=== PATIENT | female | born 1980 ===

== ENCOUNTER 2017-10-23 04:02 | Outpatient (RCR) | payer MEDICAID ==
[2015-04-04 08:16] VITALS: BMI 43.7
[~2017-10-23 04:02] MED LIST: AMO500 PO; AMOX500T10 PO; AMPH30TA9 PO; ARIP5TAB28 PO; CEP500 PO; CIPR-326 PO; CIPR-344 PO; DOCO100C2 PO; DULO60CA51 PO; ENA10 PO; ETON1VAG7 VG; EXEN2VIA SQ; FLUC200T52 PO; GLY25 PO; HUM100VI2 SUBQ; HYDR-317 PO; IBUP800T37 PO; INSU100V24 SQ; INSU100V24 SUBQ; INSU100V26 SQ; KET10 PO; MELO-205 PO; MET500 PO; METF-420 PO; NAPR500T31 PO; NORG1TAB2 PO; NPH,100V12 SQ; NPH,100V2 SUBQ; OMEP-125 PO; PER PO; PNV1TABL24; SUCR1TAB85 PO
--- NOTE | 2017-10-28 15:46 | RADIOLOGY IMAGING REPORT ---
FACILITY: [facility] PATIENT NAME: Sully Knox : 1980 MR: [id number] V: [id number] EXAM DATE: ORDERING PHYSICIAN: CHERI SOSA TECHNOLOGIST: Location: [facility] Patient: Sully Knox : 1980 Visit/Account:[id number] Date of Sevice: 10/23/2017 Exam type: GASTRIC EMPTYING History: Abdomen pain, nausea and vomiting Comparison: None. Findings: The patient received 2 mCi of technetium 99m sulfur colloid in 8 ounces of juice. Multiple sequentia l images were obtained over the abdomen for 88 minutes. Time/activity curve was generated. At 88 mi nutes 60% of gastric contents had emptied. The T1 half gastric emptying time was 47 minutes IMPRESSION: 1. T1 half gastric emptying time of a liquid phase radioactive meal of 47 minutes Report Dictated By: Nolvia Potter MD at 10/28/2017 3:23 PM Report E-Signed By: Nolvia Potter MD at 10/28/2017 3:41 PM WSN:[id number]
== END 2017-10-23 18:00 | disposition home or self-care (01) ==
LOC: NUC 04:02 → EDSTATUS 15:22 → NUC 18:00
PROVIDERS: ATTEND Internal Medicine Gastroenterology
DX: R11.2 Nausea with vomiting, unspecified (principal)
CPT/HCPCS: 78264; A9541

== ENCOUNTER → 2018-09-01 | Outpatient (CLI) | payer MEDICAID ==
[2015-04-04 08:16] VITALS: BMI 43.7
[~2018-09-01] MED LIST changes: +AMIT-104 PO; +AMOX-559 PO; +CYCL10TA29 PO; +LOSA25TA57 PO; -METF-420 PO; +METF-452 PO; +MULT1CAP59 PO; +POLY119P24 PO; +POLY17PO25 PO
--- NOTE | 2018-09-01 10:40 | EKG ---
FACILITY: [facility] PATIENT NAME: ROBBIE VALLE : [id number] MR: [id number] V: [id number] EXAM DATE: ORDERING PHYSICIAN: TESSY BENNETT TECHNOLOGIST: QUYEN Test Reason : PRE-OP CLEARENCE Blood Pressure : / mmHG Vent. Rate : 071 BPM Atrial Rate : 071 BPM P-R Int : 156 ms QRS Dur : 074 ms QT Int : 396 ms P-R-T Axes : 017 027 029 degrees QTc Int : 430 ms Normal sinus rhythm with sinus arrhythmia Normal ECG When compared with ECG of 29-OCT-2016 12:57, T wave amplitude has increased in Anterior leads Confirmed by VAL BUCIO ([id number]) on 09/02/2018 1:48:02 PM Referred By: ZAKI Confirmed By:VAL BUCIO
== END ==
LOC: LAB 09:45
PROVIDERS: ATTEND Surgery
DX: E11.9 Type 2 diabetes mellitus without complications (principal); I10 Essential (primary) hypertension
CPT/HCPCS: 36415; 82310; 82374; 82435; 82565; 82947; 83036; 84132; 84295; 84520

== ENCOUNTER 2018-10-29 01:50 | Day surgery (SDC) | payer MEDICAID ==
[2015-04-04 08:16] VITALS: Ht 157.5 cm; Wt 87.5 kg
[~2018-10-29] VITALS: Ht 157.5 cm; Wt 87.5 kg
[~2018-10-29 01:50] MED LIST changes: +AMIT-106 PO; +LOSA50TA80 PO
[2018-10-29 06:40] VITALS: BP 145/89
[2018-10-29] MEDS ORDERED: NORMOSOL R SOLN(*) 1000 ML BAG 1,000 ML IV PRN (07:00)
[2018-10-29] MEDS ORDERED: LIDOCAINE/SOD BICARB 8.4% SYR ID ONE (07:00)
[2018-10-29] MEDS ORDERED: PROPOFOL EMUL(*) 10MG/ML 20 ML 40 ML ONE (07:37)
[2018-10-29] MEDS ORDERED: LIDOCAINE MPF 1% 5 ML VIAL ONE (07:37)
[2018-10-29 08:17] VITALS: BP 102/44
--- NOTE | 2018-10-29 08:22 | Short(Outpt) Discharge Summary ---
Discharge Summary Reason for Hosp/Final Diag: (1) Colitis Status: Acute Hospital Course & Plan: 38 yo f presented for colonoscopy. she tolerated the procedure well and there were no complications. she will be discharged home when criteria met. Departure Discharge to: Home Discharge Instructions Home Meds Active Scripts Polyethylene Glycol 3350 (MIRALAX) 119 Gm Powder, 119 GM PO AB for 1 Day, #4 BOTTLE Take as instructed per colonoscopy instructions Prov:TESSY BENNETT 09/01/18 Insulin Regular, Human (HUMULIN R) 100 Unit/1 Ml Vial, 5 UNIT SQ DIRECTED, #3 VIAL 0 Refills Prov:LUCILLE SALDAÑA MD 06/02/16 Insulin Human Nph (HUMULIN N) 100 Unit/Ml Vial, 20 UNIT SUBQ DIRECTED, #3 AL 0 Refills Prov:LUCILLE SALDAÑA MD 06/02/16 Reported Medications Losartan Potassium (LOSARTAN POTASSIUM) 50 Mg Tablet, 50 MG PO QDAY 10/14/18 Amitriptyline Hcl (AMITRIPTYLINE HCL) 25 Mg Tablet, 25 MG PO QHS, #5 TAB 10/14/18 Cyclobenzaprine Hcl (CYCLOBENZAPRINE HCL) 10 Mg Tablet, 10 MG PO PRN, #9 TAB 09/01/18 Multivitamin (MULTIVITAMINS) 1 Each Capsule, 1 EACH PO, CAPSULE 08/07/18 Omeprazole (OMEPRAZOLE) 20 Mg Capsule.dr, 1 CAP PO QDAY, CAP 08/07/18 Diet: Regular Activity: As Tolerated Special Instructions: we will call you in 10 days with biopsy results. TESSY BENNETT Oct 29, 2018 08:21
[2018-10-29 08:30] VITALS: BP 121/85
[2018-10-29 08:41] VITALS: BP 142/90
[2018-10-29 08:46] VITALS: BP 144/91
--- NOTE | 2018-10-29 09:33 | NUR ---
0825: report from daniela cerda rn. 0830: pt states desire to go home, vss 0841: orthostatic bp's started, no significant changes, pt reports htn baseline 0848: pt dressing with help of 0855: discharge instructions addressed with pt and , state understanding 0900: pt iv dc'ed pressure dressing applied
== END 2018-10-29 09:05 | disposition home or self-care (01) ==
LOC: OR 01:50
PROVIDERS: ATTEND Surgery
DX: D12.5 Benign neoplasm of sigmoid colon (principal); E11.9 Type 2 diabetes mellitus without complications
CPT/HCPCS: 00811; 36416; 45385; 81025; 82948; 88305; J2001; J2704

== ENCOUNTER → 2019-02-14 | Outpatient (REF) | payer MEDICAID ==
[2015-04-04 08:16] VITALS: BMI 43.7
[~2019-02-14] MED LIST changes: -OMEP-125 PO; +OMEP-126 PO
[2019-02-14 10:23] LABS: PLATELET COUNT, AUTOMATED 306 K/uL (150-450)
== END ==
LOC: ZZSTITCHES 10:13
PROVIDERS: ATTEND Physician Assistant
DX: R42 Dizziness and giddiness (principal); R07.9 Chest pain, unspecified
CPT/HCPCS: 82040; 82247; 82310; 82374; 82435; 82565; 82947; 84075; 84132; 84155; 84295; 84450; 84460; 84484; 84520; 85025; 85379; 86140

== ENCOUNTER → 2019-03-25 | Outpatient (CLI) | payer MEDICAID ==
[2015-04-04 08:16] VITALS: BMI 43.7
[2019-03-25 08:10] LABS: PLATELET COUNT, AUTOMATED 290 K/uL (150-450)
[2019-03-25 08:42] LABS: LDL CHOLESTEROL 88 mg/dl
== END ==
LOC: LAB 07:53
PROVIDERS: ATTEND Nurse Practitioner Family
DX: E78.1 Pure hyperglyceridemia (principal); E11.65 Type 2 diabetes mellitus with hyperglycemia; I10 Essential (primary) hypertension
CPT/HCPCS: 36415; 82040; 82247; 82310; 82374; 82435; 82465; 82565; 82947; 83036; 83718; 84075; 84132; 84155; 84295; 84443; 84450; 84460; 84478; 84520; 85025